=== PATIENT | male | born 1975 | race Caucasian/White ===

== ENCOUNTER 2021-04-16 02:01 | Emergency (ER) | payer OTHER ==
[~2021-04-16 02:01] MED LIST: HYDROCODON-ACE1 EAC2 PO; IBUPROFEN600 MG PO; MECLIZINE HCL25 MG PO; NAPROSYN500 MG PO; PHENERGAN 12.12.5 M1 PO
[2021-04-16 02:54] LABS: BUN/CREATININE RATIO 15 (0-10)
[2021-04-16 03:02] LABS: HEMOGLOBIN 14.5 gm/dl (14.0-17.5); RED BLOOD COUNT 4.87 M/UL (4.20-5.50); WHITE BLOOD COUNT 10.7 K/UL (4.5-11.0)
[2021-04-16] MEDS ORDERED: HYDROCODONE-AC1 EACH PO (04:56)
[2021-04-16] MEDS ORDERED: ZOFRAN ODT 4 MG4 MG PO (04:56)
== END 2021-04-16 05:18 | disposition home or self-care (01) ==
LOC: ER1 02:01
PROVIDERS: Emergency Medicine
DX: K80.80 Other cholelithiasis without obstruction (principal)
CPT/HCPCS: 80053; 81001; 82962; 83690; 85025; 85610; 85730; 93005; 96374; 96375; 99284; J1885; J2270; J2405; Q9967